=== PATIENT | female | born 1990 | race Caucasian/White ===

== ENCOUNTER 2016-06-15 01:50 | Emergency (ER) | payer OTHER ==
[2016-06-15 01:55] VITALS: BP 130/83; PULSE 88; TEMP 98.2; BMI 31.6
[2016-06-15] MEDS ORDERED: ACETAMINOPHEN 325 MG TABLET (FP) PO ONE (02:58)
--- NOTE | 2016-06-15 02:58 | PDOC ---
History of Present Illness - General History Source: Patient Exam Limitations: No Limitations - History of Present Illness Initial Comments: 06/15/16 02:59 The patient is a 26 year old female with no significant past medical history who presents to the ED with headache 4 hours prior to arrival. Patient describes her headache as a throbbing sensation and 7/10 that is on the right side extending from the parietal region to the occipital. States the pain is now radiating towards the left side of her head. She reports associated photophobia and facial congestion. She also reports slight dizziness earlier that resolved on its own. Patient did not take any medications for the pain. States having a similar headache about 2 years ago when she was . Patient also reports having a sinus infection 1 month ago and that some of her symptoms are consistent. The patient denies fever, chills, cough, SOB, chest pain, and palpitations. The patient denies abdominal pain, nausea, vomiting, and diarrhea. Allergies: NKDA Social History: No alcohol, tobacco, or drug use reported. Past Surgical History: None reported PCP: None reported <Quyen Felix - Last Filed: 06/15/16 02:59> - General History Source: Patient <KyleDwight ennis - Last Filed: 06/15/16 04:20> - General Chief Complaint: Headache Stated Complaint: HEADACHE Time Seen by Provider: 06/15/16 02:58 Past History <Quyen Felix - Last Filed: 06/15/16 02:59> - Past Medical History Asthma: No Cancer: No Cardiac Disorders: No Diabetes: No HTN: No Seizures: No Thyroid Disease: No - Psycho/Social/Smoking Cessation Hx Anxiety: No Suicidal Ideation: No Smoking History: Never smoked Have you smoked in the past 12 months: No Hx Alcohol Use: No Drug/Substance Use Hx: No Hx Substance Use Treatment: No <Dwight Dowell - Last Filed: 06/15/16 04:20> - Past Medical History Allergies/Adverse Reactions: Allergies Allergy/AdvReac Type Severity Reaction Status Date / Time shellfish derived Allergy Intermediate Hives Verified 06/15/16 01:54 No Known Drug Allergies Allergy Verified 06/15/16 01:54 Home Medications: Ambulatory Orders Loratadine [Claritin -] 10 mg PO DAILY 08/07/14 Vitamins ([facility]) - 1 tab PO DAILY 08/07/14 Ibuprofen 800 mg PO TID #30 tablet 06/15/16 Metoclopramide HCl [Reglan -] 10 mg PO TID #30 tablet 06/15/16 Review of Systems - Review of Systems Able to Perform ROS?: Yes Comments:: 06/15/16 02:59 CONSTITUTIONAL: Absent: fever, no chills, no fatigue EYES: Absent: visual changes ENT: +facial congestion Absent: ear pain, no sore throat CARDIOVASCULAR: Absent: chest pain, no palpitations RESPIRATORY: Absent: cough, no SOB GI: Absent: abdominal pain, no nausea, no vomiting, no constipation, no diarrhea GENITOURINARY: Absent: dysuria, no frequency, no hematuria MUSCULOSKELETAL: Absent: back pain, no arthralgia, no myalgia SKIN: Absent: rash NEURO: +headache, photophobia, dizziness <Quyen Felix - Last Filed: 06/15/16 02:59> *Physical Exam - Vital Signs Last Vital Signs Temp Pulse Resp BP Pulse Ox 98.2 F 88 18 130/83 99 06/15/16 01:52 06/15/16 01:52 06/15/16 01:52 06/15/16 01:52 06/15/16 01:52 - Physical Exam Comments: 06/15/16 02:59 GENERAL: Well-appearing, well-nourished. No apparent distress. HEENT: Normocephalic, atraumatic. PERRL, EOM intact. CARDIOVASCULAR: Normal S1, S2. Regular rate and rhythm. PULMONARY: Clear to auscultation bilaterally. ABDOMEN: Soft, non-distended, non-tender. EXTREMITIES: Normal ROM in all four extremities. No gross deformities. SKIN: Warm, dry. No rash NEUROLOGICAL: No focal neurological deficits. <Quyen Felix - Last Filed: 06/15/16 02:59> - Vital Signs Last Vital Signs Temp Pulse Resp BP Pulse Ox 98.2 F 88 18 130/83 99 06/15/16 01:52 06/15/16 01:52 06/15/16 01:52 06/15/16 01:52 06/15/16 01:52 <Dwight Dowell - Last Filed: 06/15/16 04:20> Medical Decision Making - Medical Decision Making 06/15/16 04:20 Dr. Dowell: The scribe's documentation has been prepared under my direction and personally reviewed by me in its entirery. I confirm that the note above accurately reflects all work, treatment, procedures, and medical decision making performed by me. <Dwight Dowell - Last Filed: 06/15/16 04:20> *DC/Admit/Observation/Transfer - Attestations Scribe Attestion: 06/15/16 02:59 Documentation prepared by Quyen Felix, acting as medical physics professor for Dwight Dowell MD <Quyen Felix - Last Filed: 06/15/16 02:59> - Discharge Dispostion Admit: No <Dwight Dowell - Last Filed: 06/15/16 04:20> Diagnosis at time of Disposition: Headache Qualifiers: Headache type: unspecified Headache chronicity pattern: acute headache Intractability: not intractable Qualified Code(s): R51 - Headache - Discharge Dispostion Disposition: HOME Condition at time of disposition: Stable - Prescriptions Prescriptions: Ibuprofen 800 mg PO TID #30 tablet Metoclopramide HCl [Reglan -] 10 mg PO TID #30 tablet - Referrals Referrals: Brady Garvin MD [Staff Physician] - - Patient Instructions Printed Discharge Instructions: DI for Headache
[2016-06-15] MEDS ORDERED: ACETAMINOPHEN 325 MG TABLET (FP) ONE (03:05)
[2016-06-15 03:10] LABS: URINE APPEARANCE CLEAR; URINE BILIRUBIN NEGATIVE (NEGATIVE); URINE BLOOD NEGATIVE (NEGATIVE); URINE COLOR COLORLESS; URINE GLUCOSE (UA) NEGATIVE (NEGATIVE); URINE KETONE NEGATIVE (NEGATIVE); URINE LEUK ESTERASE NEGATIVE (NEGATIVE); URINE NITRITE NEGATIVE (NEGATIVE); URINE PROTEIN NEGATIVE (NEGATIVE); URINE UROBILINOGEN NEGATIVE E.U./dl (0.2-1.0)
== END 2016-06-15 04:35 | disposition home or self-care (01) ==
LOC: JER 01:50
DX: R51 Headache (principal)
CPT/HCPCS: 81003; 84703; 99282-25

== ENCOUNTER 2022-04-07 10:35 | Observation (INO) | payer OTHER ==
[2022-04-07 10:44] VITALS: BMI 36.6
[2022-04-07] MEDS ORDERED: ACETAMINOPHEN 1000 MG/100 ML BAG IVPB ONE (11:20)
[2022-04-07] MEDS ORDERED: ACETAMINOPHEN 325 MG TABLET (FP) ONE (11:21)
[2022-04-07] MEDS ORDERED: ONDANSETRON *ODT* 4 MG TABLET SL ONE (11:27)
[2022-04-07] MEDS ORDERED: ONDANSETRON *ODT* 4 MG TABLET ONE (11:30)
[2022-04-07 12:08] LABS: URINE APPEARANCE CLEAR; URINE COLOR YELLOW
[2022-04-07 12:09] LABS: URINE BILIRUBIN NEGATIVE (NEGATIVE); URINE GLUCOSE (UA) NEGATIVE (NEGATIVE); URINE KETONE 1+ (NEGATIVE); URINE LEUK ESTERASE NEGATIVE (NEGATIVE); URINE NITRITE NEGATIVE (NEGATIVE); URINE PROTEIN NEGATIVE (NEGATIVE); URINE UROBILINOGEN 0.2 mg/dL (0.2-1.0)
[2022-04-07 12:11] LABS: EPI CELLS 5 /uL (0-25.1); HYALINE CASTS 0 /uL (0-3.1); URINE BACTERIA 13 /uL (0-1359); URINE RBC 26 /uL (0-23.9); URINE WBC 7 /uL (0-25.8)
[2022-04-07] MEDS ORDERED: morphine CARPU-JECT 2 MG/1 ML DISP.SYRIN IVPUSH ONE ×2 (15:31→16:53)
[2022-04-07 16:43] LABS: BASO % 0.5 % (0-2.0); HEMATOCRIT 32.2 % (32.4-45.2); HEMOGLOBIN 10.6 GM/dL (10.7-15.3); LYMPH % 25.5 % (8-40); MCHC 32.8 g/dl (32.0-36.0); MEAN CELL VOLUME 91.4 fl (80-96); MEAN PLT VOLUME 8.7 fl (7.5-11.1); PLATELET COUNT 259 10^3/uL (134-434); RBC 3.52 M/mm3 (3.60-5.2); RDW 14.6 % (11.6-15.6)
[2022-04-07] MEDS ORDERED: morphine SULFATE 4 MG/ML VIAL ONE (16:56)
[2022-04-07] MEDS ORDERED: LACTATED RINGERS SOLUTION 1000 ML INFUS.BAG IV ONE (16:57)
[2022-04-07 17:01] LABS: INR 1.03 (0.83-1.09)
[2022-04-07 17:03] LABS: CALCIUM 8.4 mg/dL (8.5-10.1)
[2022-04-07 17:04] LABS: ACTIVATED PTT 31.2 SECONDS (25.2-36.5); ALBUMIN 3.4 g/dl (3.4-5.0); BLOOD UREA NITROGEN 9.1 mg/dL (7-18)
[2022-04-07 17:07] LABS: CREATININE 0.6 mg/dL (0.55-1.3)
[2022-04-07 17:09] LABS: BILIRUBIN,TOTAL 0.3 mg/dL (0.2-1); TOT PROT 6.4 g/dl (6.4-8.2)
[2022-04-07] MEDS ORDERED: ACETAMINOPHEN 325 MG TABLET (FP) PO PRN (17:47)
[2022-04-07] MEDS ORDERED: ACETAMINOPHEN 1000 MG/100 ML BAG IVPB PRN (18:00)
[2022-04-07] MEDS: LACTATED RINGERS SOLUTION 1,000 ML/1,000 ML INFUS.BAG IV SCH (19:15)
[2022-04-07] MEDS ORDERED: ACETAMINOPHEN INJECTION 100 ML IVPB ONE (19:18)
[2022-04-07 19:46] LABS: BASO % 0.8 % (0-2.0); EOS % 0.5 % (0-4.5); HEMATOCRIT 32.5 % (32.4-45.2); HEMOGLOBIN 10.8 GM/dL (10.7-15.3); LYMPH % 18.1 % (8-40); MCHC 33.1 g/dl (32.0-36.0); MEAN CELL VOLUME 90.8 fl (80-96); MEAN PLT VOLUME 8.8 fl (7.5-11.1); MONO % 5.4 % (3.8-10.2); NEUT % 75.2 % (42.8-82.8); PLATELET COUNT 280 10^3/uL (134-434); RBC 3.58 M/mm3 (3.60-5.2); RDW 14.8 % (11.6-15.6); WHITE BLOOD COUNT 8.3 K/mm3 (4.0-10.0)
[2022-04-08] MEDS: LACTATED RINGERS SOLUTION 1,000 ML/1,000 ML INFUS.BAG IV SCH ×2 (04:23→12:22)
[2022-04-08 08:28] LABS: BASO % 0.6 % (0-2.0); EOS % 0.9 % (0-4.5); HEMATOCRIT 28.5 % (32.4-45.2); HEMOGLOBIN 9.5 GM/dL (10.7-15.3); LYMPH % 32.6 % (8-40); MCH 30.1 pg (25.7-33.7); MCHC 33.2 g/dl (32.0-36.0); MEAN CELL VOLUME 90.5 fl (80-96); MEAN PLT VOLUME 8.3 fl (7.5-11.1); MONO % 8.3 % (3.8-10.2); NEUT % 57.6 % (42.8-82.8); PLATELET COUNT 241 10^3/uL (134-434); RBC 3.15 M/mm3 (3.60-5.2); RDW 14.8 % (11.6-15.6); WHITE BLOOD COUNT 4.6 K/mm3 (4.0-10.0)
[2022-04-08 14:38] LABS: BASO % 0.5 % (0-2.0); EOS % 0.7 % (0-4.5); HEMATOCRIT 31.2 % (32.4-45.2); HEMOGLOBIN 10.5 GM/dL (10.7-15.3); LYMPH % 22.5 % (8-40); MCH 30.3 pg (25.7-33.7); MCHC 33.5 g/dl (32.0-36.0); MEAN CELL VOLUME 90.6 fl (80-96); MONO % 6.8 % (3.8-10.2); NEUT % 69.5 % (42.8-82.8); PLATELET COUNT 249 10^3/uL (134-434); RBC 3.45 M/mm3 (3.60-5.2); RDW 14.6 % (11.6-15.6)
[2022-04-08] MEDS ORDERED: METHOTREXATE SODIUM/PF 25 MG/ML VIAL IM ONE (15:31)
[2022-04-08 18:28] VITALS: BP 117/67; PULSE 102; RESP 19; TEMP 99.1
== END 2022-04-08 18:48 | disposition home or self-care (01) ==
LOC: JASUSAT 10:35 → JER 10:35 → JERBED 22:45 → J4S 23:42
PROVIDERS: ADMIT Student in an Organized Health Care Education/Training Program; ATTEND Student in an Organized Health Care Education/Training Program
PROC: 3E0337Z Introduction of Electrolytic and Water Balance Substance into Peripheral Vein, Percutaneous Approach (ICD-10-PCS; principal; 2022-04-07)
PROC: 3E033NZ Introduction of Analgesics, Hypnotics, Sedatives into Peripheral Vein, Percutaneous Approach (ICD-10-PCS; 2022-04-07)
PROC: 3E023GC Introduction of Other Therapeutic Substance into Muscle, Percutaneous Approach (ICD-10-PCS; 2022-04-07)
DX: R10.13 Epigastric pain (principal); R10.32 Left lower quadrant pain; E66.8 Other obesity; R11.0 Nausea; Z68.36 Body mass index [BMI] 36.0-36.9, adult; Z91.013 Allergy to seafood
CPT/HCPCS: 36415; 76817-TC; 80053; 81003; 84702; 84703; 85025; 85610; 85730; 86850; 86900; 86901; 87086; 93005; 93010; 96372; 96374; 96376; 99285-25; C9803-CS; G0378; J9260; Q0162; U0003; U0005

== ENCOUNTER 2023-11-15 09:50 | Emergency (ER) | payer OTHER ==
[2023-11-15 09:57] VITALS: BP 108/75; PULSE 80; RESP 16; TEMP 98.8; BMI 35.7
[2023-11-15] MEDS ORDERED: ACETAMINOPHEN 500 MG TABLET (FP) ONE (10:16)
[2023-11-15] MEDS: ACETAMINOPHEN 500 MG TABLET (FP) PO ONE (10:18)
[2023-11-15] MEDS ORDERED: LIDOCAINE 5% TOPICAL PATCH TP ONE (10:20)
[2023-11-15] MEDS ORDERED: LIDOCAINE 4% PATCH TP ONE (10:23)
[2023-11-15] MEDS: LIDOCAINE 4% PATCH TP ONE (10:25)
[2023-11-15 11:53] LABS: HIV INTERPRETATION NEGATIVE (NEGATIVE)
[2023-11-15] MEDS ORDERED: LIDOCAINE PATCH REMOVAL MC SCH ×2 (22:00)
== END 2023-11-15 10:50 | disposition home or self-care (01) ==
LOC: JERFT 09:50
DX: S39.012A Strain of muscle, fascia and tendon of lower back, initial encounter (principal); M62.830 Muscle spasm of back; X50.0XXA Overexertion from strenuous movement or load, initial encounter
CPT/HCPCS: 36415; 86803; 87389; 99283-25

== ENCOUNTER 2024-11-24 19:15 | Emergency (ER) | payer OTHER ==
[2024-11-24 19:24] VITALS: BP 125/80; PULSE 82; RESP 18; TEMP 98.3; BMI 29.9
[2024-11-24 20:25] LABS: MCHC 31.7 g/dl (32.2-35.5); MEAN CELL VOLUME 93.1 fl (79.4-94.8); MEAN PLT VOLUME 10.7 fl (9.4-12.3); RDW 13.2 % (12.1-16.8)
[2024-11-24 20:41] LABS: GLUCOSE,RANDOM 103 mg/dL (74-106); TOT PROT 6.7 g/dl (6.4-8.2)
[2024-11-24 20:42] LABS: CO2 25 mmol/L (21-32)
[2024-11-24 20:44] LABS: ALK PHOS 66 U/L (40-150)
[2024-11-24 20:47] LABS: CREATININE 0.69 mg/dL (0.55-1.3); SGOT/AST 17 U/L (5-34); SGPT/ALT 15 U/L (0-55)
[2024-11-24 20:50] LABS: EPI CELLS 15 /uL (0-25.1); HYALINE CASTS 0 /uL (0-3.1); URINE APPEARANCE CLEAR; URINE BACTERIA 34 /uL (0-1359); URINE BILIRUBIN NEGATIVE (NEGATIVE); URINE COLOR YELLOW; URINE GLUCOSE (UA) NEGATIVE (NEGATIVE); URINE KETONE NEGATIVE (NEGATIVE); URINE LEUK ESTERASE NEGATIVE (NEGATIVE); URINE NITRITE NEGATIVE (NEGATIVE); URINE PROTEIN NEGATIVE (NEGATIVE); URINE RBC 72 /uL (0-23.9); URINE UROBILINOGEN 1.0 mg/dL (0.2-1.0); URINE WBC 5 /uL (0-25.8)
[2024-11-24 21:06] LABS: INR 1.09 (0.83-1.09); PROTHROMBIN TIME (PATIENT) 11.9 SEC (9.7-13.0)
[2024-11-24 21:08] LABS: HIV INTERPRETATION NEGATIVE (NEGATIVE)
[2024-11-24 21:14] LABS: HCV DIAGNOSTIC IN-HOUSE W/RFLX NON-REACTIVE (NONREACTIVE)
== END 2024-11-24 22:51 | disposition home or self-care (01) ==
LOC: JER 19:15
DX: N92.6 Irregular menstruation, unspecified (principal)
CPT/HCPCS: 36415; 76830-TC; 80053; 81003; 84702; 84703; 85025; 85610; 86803; 86850; 86900; 86901; 87086; 87389; 99285-25